=== PATIENT | male | born 1970 | race Caucasian/White ===

== ENCOUNTER 2018-09-23 13:34 | Emergency (ER) | payer MEDICAID ==
[~2018-09-23] VITALS: Ht 167.6 cm; Wt 90.4 kg
--- NOTE | 2018-09-23 13:45 | NUR ---
LAYOUT ARTIST. NO ANSWER TO TRIAGE X1 AT THIS TIME.
--- NOTE | 2018-09-23 14:24 | NUR ---
AMBULATORY TO & FROM [facility] W/OUT INCIDENT, GAIT STEADY, VOIDE URINE SPECIMEN PROVIDED. A&OX4, RESP EVEN & UNLABORED, SPEECH CLEAR. C/O LUQ & LLT PAIN - STARTED YESTERDAY. HAS HX OF KIDNEY STONE. NO PAIN MEDS TAKEN. NO SOLID FOOD TODAY; ONLY WATER.
[2018-09-23] MEDS ORDERED: ONDANSETRON ODT 4 MG PO ONE (14:30)
[2018-09-23] MEDS ORDERED: KETOROLAC 60 MG/2 ML IM ONE (14:30)
[2018-09-23 14:45] LABS: BASOPHILS # (AUTO) 0.02 x10^3/uL (0-0.1); BASOPHILS % (AUTO) 0 % (0-1); EOSINOPHILS # (AUTO) 0.02 x10^3/uL (0-0.4); EOSINOPHILS % (AUTO) 0 % (1-7); LYMPHOCYTES # (AUTO) 1.06 x10^3/uL (1-3.4); LYMPHOCYTES % (AUTO) 8 % (22-44); MD NO; MEAN CORPUSCULAR HEMOGLOBIN 29.2 pg (27.5-34.5); MEAN CORPUSCULAR HGB CONC 33.7 g/dL (33.2-36.2); MEAN CORPUSCULAR VOLUME 86.4 fL (81-97); MEAN PLATELET VOLUME 8.6 fL (7.4-10.4); MONOCYTES # (AUTO) 0.54 x10^3/uL (0.2-0.8); MONOCYTES % (AUTO) 4 % (2-9); NEUTROPHILS # (AUTO) 11.82 x10^3/uL (1.8-6.8); NEUTROPHILS % (AUTO) 88 % (42-75); PLATELET COUNT 240 x10^3/uL (130-400); RED BLOOD COUNT 5.33 x10^6/uL (4.38-5.82); RED CELL DISTRIBUTION WIDTH 13.2 % (9.4-14.8)
[2018-09-23] MEDS ORDERED: KETOROLAC 60 MG/2 ML ONE (14:50)
[2018-09-23] MEDS ORDERED: ONDANSETRON ODT 4 MG ONE (14:50)
[2018-09-23 14:55] LABS: ANION GAP 8 mmol/L (5-15); CHLORIDE 103 mmol/L (98-107)
[2018-09-23 14:56] LABS: CREATININE 1.33 mg/dL (0.7-1.3)
--- NOTE | 2018-09-23 14:57 | NUR ---
ZOFRAN AND TORADOL GIVEN PER EMAR. PT TO CT PER LATHA.
[2018-09-23 15:28] LABS: MICROSCOPIC INDICATED
[2018-09-23 16:01] VITALS: BP 136/81
[2018-09-23 16:13] LABS: CULTURE INDICATED? NO
== END 2018-09-23 16:20 | disposition home or self-care (01) ==
LOC: ED 16:10
DX: N20.1 Calculus of ureter (principal); R10.32 Left lower quadrant pain
CPT/HCPCS: 36415; 74176; 80048; 81001; 82040; 85025; 96372; 99284; J1885; Q0162